=== PATIENT | female | born 1985 | race Caucasian/White ===

== ENCOUNTER 2017-02-16 07:07 | Day surgery (SDC) | payer OTHER ==
[~2017-02-16 07:07] MED LIST: RINGERS SOLUTION,LACTATED 1,000 ML IV PRN
--- OUTSIDE RECORDS SUMMARY | 2017-02-16 07:11 | XMS REPORT | Continuity of Care Document ---
:1985 Author Organization [facility] ([facility]) [place] [address] Phone [phone] Care Team Providers Name Role Phone Maegan Orozco Primary Care Provider [phone] Source Comments This disclosure is being made pursuant to the Care Everywhere program, applicable federal and state laws, and may not contain all informaitonavailable regarding this patient.[facility] ([facility]) Active Allergies and Adverse Reactions Allergen Noted Date Severity Reactions Comments Mosquito Allergenic Extract 01/30/2017 Rash Pt had one episode with throat swelling - carries epipen Current Medications Prescription Sig. Disp. Refills Start End Status Date Date clonazePAM 0.5 mg Take 0.5 mg by Active tablet mouth 3 times daily as needed. medroxyPROGESTERone 10 Take 10 mg by Active mg tablet mouth daily. Take one tablet for the first 10 days of each month. traZODone 50 mg tablet Take 50-100 mg by Active mouth at bedtime. SUPPLY FREESTYLE Take as directed 100 Each 2 01/31/20 Active lancets daily. Non-Insulin 17 Dependent cholecalciferol 50,000 Take 1 capsule 8 capsule 0 01/31/20 Active unit capsule (50,000 Units 17 total) by mouth every week. escitalopram oxalate Take 1 tablet (20 90 tablet 1 01/31/20 Active 20 mg tablet mg total) by mouth 17 daily. gabapentin 100 mg Take 1 capsule 180 1 01/31/20 Active capsule (100 mg total) by capsule 17 mouth 3 times daily. glipiZIDE 10 mg tablet Take 1 tablet (10 90 tablet 01/31/20 Active mg total) by mouth 17 daily. hydroCHLOROthiazide 25 Take 1 tablet (25 90 tablet 01/31/20 Active mg tablet mg total) by mouth 17 daily. metFORMIN 1,000 mg Take 1 tablet 180 tablet 1 01/31/20 Active tablet (1,000 mg total) 17 by mouth 2 times daily with meals. raNITIdine 300 mg Take 1 tablet (300 180 tablet 1 01/31/20 Active tablet mg total) by mouth 17 2 times daily. EPINEPHrine 0.3 mg/0.3 Inject 0.3 mL (0.3 1 Syringe 1 01/31/20 Active mL injection pen mg total) 17 intramuscularly once as needed. EPINEPHrine 0.3 mg/0.3 Inject 0.3 mg mL injection pen intramuscularly 2017 once as needed. cholecalciferol 50,000 Take 1 capsule by Discontinued unit capsule mouth 2 times 2016 weekly. escitalopram oxalate Take 20 mg by Discontinued 10 mg tablet mouth daily. 2016 gabapentin 100 mg Take 100 mg by Discontinued capsule mouth 2 times 2016 daily. glipiZIDE 10 mg tablet Take 15 mg by Discontinued mouth daily. Takes 2017 1 tablet in the AM and 1/2 tablet in the PM hydroCHLOROthiazide 25 Take 25 mg by Discontinued mg tablet mouth daily. 2016 metFORMIN 1,000 mg Take 1,000 mg by Discontinued tablet mouth 2 times 2016 daily with meals. raNITIdine 300 mg Take 300 mg by 01/30/ Discontinued tablet mouth 2 times 2016 daily. Active Problems Problem Noted Date Depression 01/30/2017 DM (diabetes mellitus), type 2, uncontrolled 01/30/2017 Diabetic neuropathy 01/30/2017 Generalized headaches 01/30/2017 Essential hypertension 01/30/2017 Morbid obesity with BMI of 50.0-59.9, adult 01/30/2017 Gastroesophageal reflux disease without esophagitis 01/30/2017 Vitamin D deficiency 01/30/2017 DUB (dysfunctional uterine bleeding) 01/30/2017 Insomnia 01/30/2017 Endometrial thickening on ultra sound 01/30/2017 Overview: "echogenic double layer endometrium measuring 1.3 cm" on 04/24/2015 - may be WNL in premenopausal female - F/U US recommended Hypertriglyceridemia 01/30/2017 Exertional dyspnea 01/30/2017 JOHANNE (obstructive sleep apnea) 01/30/2017 Pap smear abnormality of cervix with LGSIL - last pap 08/201601/30/2017 Thyroid enlargement 01/30/2017 Stuttering 01/30/2017 Most Recent Encounters Date Type Specialty Providers Description 02/13/2017 Office Visit [facility] - Primary Sabrina Napoles, Subj: Upcoming Appt [employer] CONSULTANT Reminder 02/08/2017 Office Visit [facility] Sabrina Napoles, Chief Comp: Patient [employer] CONSULTANT Reported Reason For Visit 02/04/2017 Telephone [facility] Iliana Serrano, Chief Comp: Results 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 01/30/2017 Office Visit [facility] Maegan Orozco PA-C Chief Comp : Patient Reported Reason For Visit 01/30/2017 Office Visit [facility] Maegan Orozco PA-C Dx: Encounter for medical examination to establish care (Primary Dx) Social History Tobacco Use Types Packs/Day Years Used Date Current Every Day Smoker Cigarettes 0.25 16 Alcohol Use Drinks/Week oz/Week Comments No 0 Standard drinks or equivalent 0.0 Last Filed Vital Signs Vital Sign Reading Time Taken Blood Pressure 126/78 01/30/2017 1:40 PM CDT Pulse 92 01/30/2017 1:40 PM CDT Temperature 36.3 C (97.3 F) 01/30/2017 1:40 PM CDT Respiratory Rate 18 01/30/2017 1:40 PM CDT Height 1.715 m (5' 7.5") 01/30/2017 1:40 PM CDT Weight 149.052 kg (328 lb 9.6 oz) 01/30/2017 1:40 PM CDT Body Mass Index 50.68 01/30/2017 1:40 PM CDT Oxygen Saturation - - Plan of Care Health Maintenance Due Date Last Done Comments Hepatitis B Vaccine (1 of 3 - Primary Series) 1985 Tdap Vaccine 1996 DIABETIC: Cholesterol 2003 Diabetic: Hdl 2003 Diabetic: Ldl 2003 DIABETIC: Triglycerides 2003 MMR Vaccine 2003 Td Vaccine 2003 Varicella Vaccine (1 of 2 - Adult - No Evidence of 2003 Immunity) Pneumococcal Vaccine (1 of 1 - PPSV23) 2004 Cervical Cancer Screening 2015 DIABETIC: Foot Exam 01/30/2017 DIABETIC: Retinal Eye Exam 01/30/2017 Influenza Vaccine: Seasonal (Season Ended) 2017 DIABETIC: Hemoglobin A1C 08/02/2017 01/30/2017 DIABETIC: Microalbumin 01/30/2018 01/30/2017 Results from Last 3 Months [facility] VITAMIN D 25, HYDROXY D2 D3 (01/30/2017 2:25 PM) Specimen Blood [facility] HEMOGLOBIN A1C (GLYCOSYLATED) (01/30/2017 2:25 PM) Component Value Range CH Hgb A1C (Glycosylated) 8.6(H) 4.3-5.8 % Specimen Blood [facility] MICROALBUMIN, RANDOM (01/30/2017 2:25 PM) Specimen Urine [facility] URINE DIPSTICK, NONAUTO POINT OF CARE (01/30/2017) Component Value Range [facility] POC Specific [place] 1.010(A) 1.015-1.025 [facility] POC pH 6.0 5.0-8.5 [facility]OC Leukocyte Negative [facility] Nitrite Negative [facility] Protein Trace mg/dl [facility] Glucose, Urine 1000 [facility] Ketones Negative [facility] Urobilinogen n [facility] Bilirubin Negative [facility] Blood Trace nonhemolyzed
--- OUTSIDE RECORDS SUMMARY | 2017-02-16 07:11 | XMS REPORT | Continuity of Care Document ---
:1985 Author Organization [facility] [place] [address] Care Team Providers Name Role Phone Anastacia Sow Grecia Primary Care Provider [phone] Source Comments This disclosure is being made pursuant to the [employer] program and maynot contain all information available regarding this patient.[facility] Active Allergies and Adverse Reactions No Known Allergies Current Medications Be aware that medications may not be up to date as of this document. Alwaysverify current medications with the patient. Prescription Sig. Disp. Refills Start Date End Date Status metFORMIN (GLUCOPHAGE) 500 MG Take 500 mg by Active tablet mouth 2 (two) times daily with meals. glipiZIDE (GLUCOTROL) 5 MG Take 5 mg by Active tablet mouth daily. hydrochlorothiazide Take 25 mg by Active (HYDRODIURIL) 25 MG tablet mouth daily. ranitidine (ZANTAC) 150 MG Take 150 mg by Active tablet mouth 2 (two) times daily. Active Problems Not on file Most Recent Encounters Date Type Specialty Providers Description 02/02/2017 Data Import Social History Tobacco Use Types Packs/Day Years Used Date Never Assessed Plan of Care Health Maintenance Due Date Last Done Comments Tetanus/Pertussis (1 - Tdap) 2004 Pap Smear 2006 Influenza Immunization (#1) 2016 Results from Last 3 Months Not on file
[2017-02-16 07:37] LABS: Hematocrit 35.2 % (37.0-47.0); Hemoglobin 11.2 gm/dL (12.5-16.0); Mean Cell Volume 80.7 fl (78-100); Mean Corpuscular Hemoglobin 25.7 pg (27-31); Mean Corpuscular Hgb Conc 31.8 g/dl (32-36); Mean Platelet Volume 9.7 fl (6.0-9.5); Neutrophil % 67.7 % (42-75.0); Platelet Count 282 K/mm3 (150-450); Red Blood Count 4.36 M/mm3 (4.2-5.4); Red Cell Distribution Width 14.8 % (11.5-14.0); White Blood Count 7.4 K/mm3 (4.0-10.5)
[2017-02-16] MEDS ORDERED: RINGERS SOLUTION,LACTATED 1,000 ML IV ONE ×2 (07:53→09:20)
[2017-02-16] MEDS ORDERED: RINGERS SOLUTION,LACTATED 1,000 ML IV PRN (09:32)
[2017-02-16] MEDS ORDERED: IBUPROFEN 800 MG TABLET PO ONE (10:00)
[2017-02-16] MEDS ORDERED: oxyCODONE HCL/ACETAMINOPHEN 1 TAB TABLET PO ONE (10:00)
--- NOTE | 2017-02-16 10:25 | OR ---
Operative Report - Dictated Report Narrative: Date of Procedure: 02/16/2017 PROCEDURE: 1. Colposcopy of cervix and vagina and cervical biopsies 2. Diagnostic hysteroscopy with D&C. ANESTHESIA: General with endotracheal intubation PREOPERATIVE DIAGNOSIS: 1. Abnormal endometrial ultrasound: thickened 2.1 cm with cystic spaces 2. Simple endometrial hyperplasia without atypia 3. Oligomenorrhea 4. PCOS 5. Morbid obesity (BMI 50.2, weight 150 kg) POSTOPERATIVE DIAGNOSES: 1. Abnormal endometrial ultrasound: thickened 2.1 cm with cystic spaces 2. Simple endometrial hyperplasia without atypia 3. Oligomenorrhea 4. PCOS 5. Morbid obesity (BMI 50.2, weight 150 kg) SURGEON: Omi Pink MD PEDIATRICIAN ACTIVE PRACTICE: [facility] FINDINGS: 1. Colposcopy: Acetowhite epithelium at 4-8 o'clock with mosaic pattern at 11 o' clock, no gross lesions. 2. Retroverted uterus, sounded to 10 cm with fluffy endometrium and clots. Patient is on day 5 of her period. SPECIMEN: 1. Cervical biopsy at 4 o'clock 2. Cervical biopsy at 11 o'clock 3. Endocervical curettings 4. Endometrial curettings DRAINS: None. URINE OUTPUT: not measured, voided before procedure BLOOD LOSS: 15 ml INTRAOPARATIVE IV FLUIDS: 700 ml Uterine Distending Solution: Normal saline, in 1100 ml, out 1000 ml, deficit 100 ml. COMPLICATIONS: None. DESCRIPTION OF PROCEDURE: The patient consented prior to the operation and taken to the operating room. She was placed on the operating table supine. SCDs were placed on her lower extremities. General anesthesia was induced. She was then repositioned in the dorsal lithotomy position. Exam under anesthesia revealed a retroverted uterus with no adnexal mass. The abdomen and the perineum were prepped with Betadine. A time-out procedure was conducted to confirm the correct patient for the correct procedure. After time-out, a bivalve speculum was placed into the vagina. The cervix was visualized. 5% acetic acid was applied to the cervix and the nearby vagina. Colposcopy was performed. The entire transformation zone was visualized. Findings were noted above. Biopsies were taken at 4 and 11 o' clock. An endocervical curettage was performed and scant amount of tissue was obtained. Bleeding from the biopsy sites were controlled with pressure from a sponge stick. The colposcopy was satisfactory. Next, the vagina and the cervix were prepped with Betadine. The speculum was removed. The patient was draped in the usual sterile fashion. A sterile speculum was inserted into the vagina. The anterior cervix was grasped with a single-tooth tenaculum. The uterus was sounded to 10 cm. The cervix was dilated with [place] dilators. A 30 degree hysteroscope was inserted through cervical canal into the uterine cavity. Exam of the uterine cavity revealed findings noted above. The hysteroscope was removed. The bivalve speculum was removed. A weighted speculum was placed. A [place] retractor was used to retract the anterior vaginal wall. A sharp curette was inserted into the uterine cavity. The cavity was scraped in all directions. Moderate to large amount of endometrial curettings were obtained. The sharp curette was removed. There was no bleeding from the cervix. The single-tooth tenaculum was removed. The tenaculum site was bleeding and this was controlled with silver nitrite and pressure. The [place] retractor and the weighted speculum were removed. Patient tolerated the procedure well. All counts were correct. The patient was taken to the recovery room in stable condition. Omi Pink MD
[2017-02-16 11:02] VITALS: BP 123/75
== END 2017-02-16 07:08 | disposition home or self-care (01) ==
LOC: SUR 07:07
PROVIDERS: ATTEND Obstetrics & Gynecology
PROC: 0UBC7ZX Excision of Cervix, Via Natural or Artificial Opening, Diagnostic (ICD-10-PCS; 2017-02-16)
PROC: 0UDB8ZX Extraction of Endometrium, Via Natural or Artificial Opening Endoscopic, Diagnostic (ICD-10-PCS; principal; 2017-02-16 08:00)
DX: N87.0 Mild cervical dysplasia (principal); E28.2 Polycystic ovarian syndrome; N72 Inflammatory disease of cervix uteri; E11.9 Type 2 diabetes mellitus without complications; K21.9 Gastro-esophageal reflux disease without esophagitis; F41.9 Anxiety disorder, unspecified; F32.9 Major depressive disorder, single episode, unspecified; F17.210 Nicotine dependence, cigarettes, uncomplicated; E66.01 Morbid (severe) obesity due to excess calories; Z68.42 Body mass index [BMI] 45.0-49.9, adult